=== PATIENT | male | born 1995 ===

== ENCOUNTER 2021-12-16 10:50 | Emergency (ER) | payer SELFPAY ==
[2021-12-16 15:03] LABS: Hematocrit 47.3 % (35.5-45.6); Hemoglobin 15.1 gm/dl (11.8-15.2); Mean Corpuscular HGB Conc 32 % (32-34); Mean Corpuscular Volume 86 fl (84-94); Platelet Count 215 K/mm3 (140-440); Red Cell Distribution Width 14.4 % (13.2-15.2)
--- NOTE | 2021-12-16 15:34 | Cat Scan Report ---
CT ABDOMEN AND PELVIS WITHOUT CONTRAST INDICATION / CLINICAL INFORMATION: kidney stones. TECHNIQUE: Axial CT images were obtained through the abdomen and pelvis without IV contrast. All CT scans at this location are performed using CT dose reduction for ALARA by means of automated exposure control. COMPARISON: None available. FINDINGS: LOWER CHEST: No significant abnormality LIVER: No significant abnormality GALLBLADDER/BILIARY TREE: No significant abnormality PANCREAS: No significant abnormality SPLEEN: No significant abnormality ADRENALS: No significant abnormality RIGHT KIDNEY / URETER: Ptotic right kidney. No urolithiasis or hydronephrosis. LEFT KIDNEY / URETER: 7 mm calcification in the distal left ureter just proximal to the UVJ. There is mild left hydroureteronephrosis with prominent asymmetric left perinephric and periureteral strandin g. Additional 6 mm stone in the upper pole calyx and punctate stone in the lower pole calyx. URINARY BLADDER: Bladder is partially decompressed, though grossly unremarkable. REPRODUCTIVE ORGANS: No significant abnormality STOMACH / BOWEL: Small bowel is normal in caliber. The colon is unremarkable. The appendix is normal in caliber. LYMPH NODES: No significant adenopathy. VASCULATURE: No significant abnormality. OTHER: No free air, free fluid, or focal fluid collection is identified. SKELETAL SYSTEM: No acute osseous findings. IMPRESSION: 1. 7 mm distal left ureteral stone with mild left hydroureteronephrosis and prominent perinephric and periureteral stranding, consistent with obstructive uropathy. 2. Additional small nonobstructive left renal stones. Signer Name: Juan Cuellar MD Signed: 12/16/2021 3:30 PM Workstation Name: [id number]
[2021-12-16 15:49] LABS: Alanine Aminotransferase 15 units/L (7-56); Albumin 4.8 g/dL (3.9-5); BUN/Creatinine Ratio 8; Blood Urea Nitrogen 10 mg/dL (9-20); Calcium 9.7 mg/dL (8.4-10.2); Hemolysis Index 11
[2021-12-16] MEDS ORDERED: MORPHINE 4 MG/1 ML INJ IV ONE (15:51)
[2021-12-16] MEDS ORDERED: KETOROLAC 30 MG/1 ML INJ IV ONE (15:51)
[2021-12-16] MEDS ORDERED: SODIUM CHLORIDE 0.9% 1000 ML 1,000 ML IV ONE ×2 (15:51→18:43)
[2021-12-16] MEDS ORDERED: ONDANSETRON 4 MG/2 ML INJ IV ONE (15:51)
[2021-12-16] MEDS ORDERED: diphenhydrAMINE 50 MG/ML VIAL IV ONE (16:37)
[2021-12-16 16:58] LABS: Basophils % (Manual) 0 % (0.0-1.8); Eosinophils % (Manual) 0 % (0.0-4.3); Total Cells Counted 100
[2021-12-16 16:59] LABS: Platelet Estimate Consistent w Auto; RBC Morphology Normal
[2021-12-16 18:00] LABS: Mucus,Urine FEW /HPF
[2021-12-16 18:03] LABS: Color,Urine Red (Yellow); RBC,Urine > 182.0 /HPF (0.0-6.0)
[2021-12-16] MEDS ORDERED: GENTAMICIN 80 MG in SODIUM CHLORIDE 0.9% 100 ML IV ONE (18:44)
--- NOTE | 2021-12-16 18:52 | Emergency Department Report ---
ED Abdominal Pain HPI - General Chief Complaint: Abdominal Pain Stated Complaint: POSSIBLE KIDNEY STONE Time Seen by Provider: 12/16/21 15:47 Source: patient Mode of arrival: Ambulatory Limitations: No Limitations - History of Present Illness Initial Comments: 26-year-old male with no past medical history presents to the ED for evaluation of left lower quadrant and left flank pain that started today and was associated with nausea, vomiting, and hematuria. He denies fever, dysuria, diarrhea, and penile discharge. MD Complaint: abdominal pain, flank pain -: Sudden, hour(s) Location: LLQ, L flank Radiation: none Migration to: no migration Severity scale (0 -10): 10 Quality: cramping, aching Consistency: constant Worsens With: movement Associated Symptoms: nausea, vomiting, hematuria. denies: diarrhea, fever, chills, dysuria, hematemesis, hematochezia, melena, anorexia, syncope - Related Data Previous Rx's Medication Instructions Recorded Last Taken Type Acetaminophen/Codeine [Tylenol 1 tab PO Q6H PRN #12 tab 12/16/21 Unknown Rx /Codeine # 3 tab] Ketorolac [Toradol] 10 mg PO Q6H PRN #12 tab 12/16/21 Unknown Rx Ondansetron [Zofran Odt] 4 mg PO Q8HR PRN #12 tab.rapdis 12/16/21 Unknown Rx Tamsulosin [Flomax] 0.4 mg PO QPM #30 cap 12/16/21 Unknown Rx levoFLOXacin [Levaquin] 750 mg PO QDAY 5 Days #5 tablet 12/16/21 Unknown Rx Allergies Allergy/AdvReac Type Severity Reaction Status Date / Time No Known Allergies Allergy Unverified 12/16/21 11:13 ED Review of Systems ROS: Stated complaint: POSSIBLE KIDNEY STONE Other details as noted in HPI Comment: All other systems reviewed and negative Constitutional: denies: chills, fever Respiratory: denies: cough, shortness of breath Cardiovascular: denies: chest pain, palpitations Gastrointestinal: abdominal pain, nausea, vomiting Genitourinary: hematuria. denies: urgency, dysuria, frequency, discharge, testicular pain Musculoskeletal: back pain Skin: denies: rash, lesions Neurological: denies: headache, weakness ED Past Medical Hx - Past Medical History Previous Medical History?: No - Surgical History Past Surgical History?: No - Medications Home Medications: Home Medications Medication Instructions Recorded Confirmed Last Taken Type Acetaminophen/Codeine [Tylenol 1 tab PO Q6H PRN #12 tab 12/16/21 Unknown Rx /Codeine # 3 tab] Ketorolac [Toradol] 10 mg PO Q6H PRN #12 tab 12/16/21 Unknown Rx Ondansetron [Zofran Odt] 4 mg PO Q8HR PRN #12 tab.rapdis 12/16/21 Unknown Rx Tamsulosin [Flomax] 0.4 mg PO QPM #30 cap 12/16/21 Unknown Rx levoFLOXacin [Levaquin] 750 mg PO QDAY 5 Days #5 tablet 12/16/21 Unknown Rx ED Physical Exam - General Limitations: No Limitations General appearance: alert, in no apparent distress - Head Head exam: Present: atraumatic, normocephalic - Eye Eye exam: Present: normal appearance. Absent: scleral icterus, conjunctival injection - Neck Neck exam: Present: normal inspection. Absent: tenderness, lymphadenopathy - Respiratory Respiratory exam: Present: normal lung sounds bilaterally. Absent: respiratory distress, wheezes, rales, rhonchi, stridor, chest wall tenderness - Cardiovascular Cardiovascular Exam: Present: regular rate, normal heart sounds - GI/Abdominal GI/Abdominal exam: Present: soft, tenderness (Left lower quadrant), normal bowel sounds. Absent: distended, guarding, rebound, rigid - Extremities Exam Extremities exam: Present: normal inspection, full ROM, normal capillary refill. Absent: pedal edema, joint swelling - Back Exam Back exam: Present: normal inspection, tenderness (Left lower), CVA tenderness (L). Absent: CVA tenderness (R), vertebral tenderness - Neurological Exam Neurological exam: Present: alert, oriented X3, normal gait - Psychiatric Psychiatric exam: Present: normal affect, normal mood - Skin Skin exam: Present: warm, dry, intact, normal color ED Course Vital Signs 12/16/21 12/16/21 11:11 21:24 Temperature 98.5 F Pulse Rate 75 69 Respiratory 18 14 Rate Blood Pressure 152/86 131/84 [Left] O2 Sat by Pulse 99 100 Oximetry - Consultations Consultation #1: 12/16/21 18:48 Patient was noted to have 7 millimeter obstructing stone along with elevated WBC, so case was discussed with Dr. Arteaga from [facility]. Dr. Arteaga stated patient did not require admission now but he should have another liter of fluids, IV gentamicin 80 mg x 1, urine culture, and be discharged home with Flomax, pain control, and follow-up in their office next week for further evaluation and management. 12/17/21 19:04 ED Medical Decision Making - Lab Data Result diagrams: 12/16/21 14:12 12/16/21 14:12 - Radiology Data Radiology results: report reviewed, image reviewed CT abdomen pelvis without contrast: FINDINGS: LOWER CHEST: No significant abnormality LIVER: No significant abnormality GALLBLADDER/BILIARY TREE: No significant abnormality PANCREAS: No significant abnormality SPLEEN: No significant abnormality ADRENALS: No significant abnormality RIGHT KIDNEY / URETER: Ptotic right kidney. No urolithiasis or hydronephrosis. LEFT KIDNEY / URETER: 7 mm calcification in the distal left ureter just proximal to the UVJ. There is mild left hydroureteronephrosis with prominent asymmetric left perinephric and periureteral stranding. Additional 6 mm stone in the upper pole calyx and punctate stone in the lower pole calyx. URINARY BLADDER: Bladder is partially decompressed, though grossly unremarkable. REPRODUCTIVE ORGANS: No significant abnormality STOMACH / BOWEL: Small bowel is normal in caliber. The colon is unremarkable. The appendix is normal in caliber. LYMPH NODES: No significant adenopathy. VASCULATURE: No significant abnormality. OTHER: No free air, free fluid, or focal fluid collection is identified. SKELETAL SYSTEM: No acute osseous findings. IMPRESSION: 1. 7 mm distal left ureteral stone with mild left hydroureteronephrosis and prominent perinephric and periureteral stranding, consistent with obstructive uropathy. 2. Additional small nonobstructive left renal stones. - Medical Decision Making 26-year-old male with no past medical history presents to the ED for evaluation of right lower quadrant and right flank pain that started today and was associated with nausea, vomiting, and hematuria. He denies fever, dysuria, diarrhea, and penile discharge. CT scan positive for 7 mm obstructing kidney stone and noted to have elevated WBC. Case discussed with urology and patient will be discharged home after sec ond liter of fluid and IV gentamicin with Cipro, Flomax, Toradol, Zofran, and Tylenol 3. He is advised to increase intake of noncaffeinated fluids and follow-up with urology next week for further evaluation and management. He is advised to return to the emergency department as needed. He verbalizes understanding of and agreement with plan of care. Critical care attestation.: If time is entered above; I have spent that time in minutes in the direct care of this critically ill patient, excluding procedure time. ED Disposition Clinical Impression: Kidney stone on left side Disposition: 01 HOME / SELF CARE / HOMELESS Is pt being admited?: No Does the pt Need Aspirin: No Condition: Stable Instructions: Kidney Stones, [id number], Dietary Guidelines to Help Prevent Kidney Stones Additional Instructions: Take medications as prescribed. Increase intake of noncaffeinated fluids. Follow-up with urology next week for further evaluation and management. Return to the emergency department as needed. Prescriptions: Tamsulosin [Flomax] 0.4 mg PO QPM #30 cap levoFLOXacin [Levaquin] 750 mg PO QDAY 5 Days #5 tablet Ketorolac [Toradol] 10 mg PO Q6H PRN #12 tab PRN Reason: Pain Acetaminophen/Codeine [Tylenol /Codeine # 3 tab] 1 tab PO Q6H PRN #12 tab PRN Reason: Pain , Severe (7-10) Ondansetron [Zofran Odt] 4 mg PO Q8HR PRN #12 tab.rapdis PRN Reason: Nausea And Vomiting Referrals: ASH ARTEAGA MD [Staff Physician] - 3-5 Days Forms: Work/School Release Form(ED) Time of Disposition: 19:21
[2021-12-16] MEDS ORDERED: levoFLOXacin 500 MG TAB PO ONE (19:17)
[2021-12-16 21:25] VITALS: BP 131/84
== END 2021-12-16 21:25 | disposition home or self-care (01) ==
LOC: ED 10:50
DX: N20.0 Calculus of kidney (principal)
CPT/HCPCS: 36415; 74176; 80053; 81001; 83690; 85007; 85025; 87086; 96361; 96365; 96375; 99284; J1200; J1580; J1885; J2270; J2405; J7030; 96374